=== PATIENT | female | born 1990 | race Caucasian/White ===

== ENCOUNTER 2020-05-12 19:33 | Emergency (ER) | payer OTHER, SELFPAY ==
--- NOTE | ~2020-05-12 | XR_ITS ---
EXAMINATION: XR knee RT 3V DATE: 05/12/2020 19:58 INDICATION: Right knee pain TECHNIQUE: Three views of the right knee were obtained. COMPARISON: None. FINDINGS: Alignment is normal. No fracture or osteochondral lesion. Joint spaces are normal with no e rosions. No joint effusion/synovitis. Soft tissues are unremarkable. IMPRESSION: 1. No acute osseous abnormality. Reviewed, dictated and finalized at location A. URSING AGENT
[2020-05-12 19:35] VITALS: BP 139/88; PULSE 98; RESP 18; TEMP 36.2; O2SAT 100
--- NOTE | 2020-05-12 21:06 | ED.GENADULT ---
HPI - General Adult General Chief complaint: Extremity Injury, Lower Stated complaint: right knee injury Time Seen by Provider: 05/12/20 20:48 Source: patient Mode of arrival: ambulatory Limitations: no limitations History of Present Illness HPI narrative: Patient is a 29-year-old female who presents with right knee pain that began today after jumping out of the bed of a truck and her knee twisted awkwardly is since had aching pain worse with weightbearing and activity patient denies other injuries or complaints or similar occurrence in the past presents in no distress has not had anything for her symptoms Related Data Home Medications Medication Instructions Recorded Confirmed L norgest/e.estradiol-e.estrad 05/12/20 [Amethia] Allergies Allergy/AdvReac Type Severity Reaction Status Date / Time clindamycin Allergy Rash Verified 05/12/20 19:39 sulfamethoxazole Allergy Rash Verified 05/12/20 19:39 [From Bactrim] trimethoprim [From Bactrim] Allergy Rash Verified 05/12/20 19:39 Review of Systems Review of Systems: All systems reviewed & are unremarkable except as noted in HPI and below PMFSH Surgical History Surgical History (Updated 05/12/20 @ 21:07 by Fredy Mares PA-C) History of orthopedic surgery Family History Family History (Updated 10/10/15 @ 23:21 by DOCTOR UNKNOWN) Father Hypertension Cerebrovascular accident Family history of diabetes mellitus in first degree relative Mother Patient's mother is in good health Sibling Patient's sister is in good health Patient's brother is in good health Social History Social History (Updated 05/12/20 @ 21:07 by Fredy Mares PA-C) Smoking status: Never smoker Alcohol intake: current Gender identity (if verbalized by the patient): Female Sexual Orientation (if Verbalized by the Patient): Straight or Heterosexual Exam Narrative: Exam Narrative: GENERAL: Well-appearing, well-nourished, and in no acute distress. HEAD: Normocephalic, atraumatic. EYES: PERRLA and EOMI. EXTREMITIES: Normal range of motion. No edema. Tenderness of the lateral medial aspect of the right knee no deformities noted SKIN: Warm, dry, no rash. NEURO: No focal deficits. Alert and oriented x3. Neurovascularly intact PSYCH: Normal mood and affect. Course Course Emergency Course: Patient evaluated in the emergency department no distress felt appropriate for outpatient reevaluation Vital Signs Vital signs: Vital Signs Temperature 97.1 F L 05/12/20 19:35 Pulse Rate 98 05/12/20 19:35 Respiratory Rate 18 05/12/20 19:35 Blood Pressure 139/88 05/12/20 19:35 Pulse Oximetry 100 05/12/20 19:35 Temperature 97.1 F L 05/12/20 19:35 Pulse Rate 98 05/12/20 19:35 Respiratory Rate 18 05/12/20 19:35 Blood Pressure 139/88 05/12/20 19:35 Pulse Oximetry 100 05/12/20 19:35 Medical Decision Making MDM Narrative Medical decision making narrative: Patients injury or pain is consistent with musculoskeletal etiology. No signs of neurological or vascular compromise on exam. Compartments and tisues are soft without signs of compartment syndrome. Pain is felt appropriate for further evaluation on an outpatient basis. Vital Signs Vital Signs: Vital Signs Temperature 97.1 F L 05/12/20 19:35 Pulse Rate 98 05/12/20 19:35 Respiratory Rate 18 05/12/20 19:35 Blood Pressure 139/88 05/12/20 19:35 Pulse Oximetry 100 05/12/20 19:35 Temperature 97.1 F L 05/12/20 19:35 Pulse Rate 98 05/12/20 19:35 Respiratory Rate 18 05/12/20 19:35 Blood Pressure 139/88 05/12/20 19:35 Pulse Oximetry 100 05/12/20 19:35 Imaging Data Radiologist's impression: ITS Impressions Knee X-Ray 05/12/20 20:01 IMPRESSION: 1. No acute osseous abnormality. Discharge Plan Discharge Clinical Impression: Acute pain of right knee Patient Disposition: Home, Self-Care Condition: Stable Instructions: Antibiot
== END 2020-05-12 21:20 | disposition home or self-care (01) ==
PROVIDERS: Emergency Provider Emergency Medicine; PCP Family Medicine
DX: M25.561 Pain in right knee (principal)
CPT/HCPCS: 73562; 99283

== ENCOUNTER → 2020-05-23 07:48 | Outpatient (CLI) | payer OTHER, SELFPAY ==
--- NOTE | ~2020-05-23 | MR_ITS ---
EXAMINATION: MR knee RT wo con DATE: 05/23/2020 08:28 INDICATION: Generalized right knee pain. TECHNIQUE: Magnetic resonance imaging (MRI) of the right knee was performed without intravenous contr ast. Sequences included axial PD-weighted FS FSE, coronal PD-weighted FSE and PD-weighted FS FSE, sag ittal PD-weighted FSE, and sagittal T2-weighted FS FSE. COMPARISON: Right knee radiographs 05/12/2020 FINDINGS: Medial compartment: Medial meniscus is normal. There is cartilage surface irregularity of tibial condyle involving the ce ntral articular surface. The femoral cartilage is normal. Lateral compartment: Lateral meniscus is normal. Lateral compartment cartilage is normal. Patellofemoral compartment: The patellar cartilage is normal. Trochlear cartilage is normal. Ligaments and tendons: Anterior cruciate ligament is enlarged and indistinct with increased signal intensity. There is fluid at the proximal attachment. Posterior cruciate ligament is normal. Medial collateral ligament and la teral collateral ligament complex are normal. Fluid: There is a small knee joint effusion. Osseous/other: There is bone marrow edema-like marrow signal intensity in the posterior aspect of medial and lateral tibial condyles, consistent with contusions. IMPRESSION: 1. Anterior cruciate ligament tear, at least partial. 2. Mild medial compartment chondrosis. 3. Small knee joint effusion. Reviewed, dictated and finalized at location A. ASSEMBLER
== END ==
PROVIDERS: PCP Family Medicine; Visit Provider Orthopaedic Surgery
DX: S83.511A Sprain of anterior cruciate ligament of right knee, initial encounter (principal); X58.XXXA Exposure to other specified factors, initial encounter; M25.461 Effusion, right knee
CPT/HCPCS: 73721

== ENCOUNTER → 2020-06-23 03:01 | Outpatient (CLI) | payer OTHER, SELFPAY ==
[2020-06-23 19:42] LABS: SARS-CoV-2 RNA PCR Negative
== END ==
PROVIDERS: PCP Family Medicine; Visit Provider Orthopaedic Surgery
DX: Z01.812 Encounter for preprocedural laboratory examination (principal); Z20.822 Contact with and (suspected) exposure to COVID-19
CPT/HCPCS: C9803; U0003; U0005

== ENCOUNTER 2020-06-26 00:29 | Day surgery (SDC) | payer OTHER, SELFPAY ==
[2020-06-11 09:56] VITALS: BMI 41.0
[2020-06-26] VITALS (15 sets, daily range): BP systolic 120–161; BP diastolic 68–100; PULSE 78–126; RESP 10–18; TEMP 35.9–36.5; O2SAT 92–99
--- NOTE | 2020-06-26 07:18 | WPDHPUPDATE1 ---
History and Physical Update Update Date/Time: 06/26/20 07:18 History and Physical has been reviewed, including an updated exam of the patient. There are NO changes in the patient's condition. Covid test negative. Risks, benefits, and alternatives have been discussed and questions answered. Patient agrees to proceed with procedure.
[2020-06-26] MEDS: ACETAMINOPHEN 500 MG TABLET 1000 MG PO (08:26)
[2020-06-26] MEDS: LACTATED RINGERS 1,000 ML 30 ML IV CONT ×4 (08:30→15:24)
[2020-06-26] MEDS: KETOROLAC 15 MG/ML VIAL (*BKC) IV PUSH (08:35)
--- NOTE | 2020-06-26 08:42 | SUR.PREOP ---
PT HAS CRUTCHES AT HOME AND STATES SHE KNOWS HOW TO USE THEM
--- NOTE | 2020-06-26 08:58 | WPDANESEPPF ---
Anes - Initial Pre Proc Eval Procedure: Operation Date: 06/26/20 09:30 Proposed Procedures p Right Knee Anterior Cruciate Ligament Reconstruction - Giancarlo Schultz MD Date/Time: 06/26/20 08:58 Surgeon: Giancarlo Schultz MD Pre Op Diagnosis: Right ACL Tear Patient Data Age: 29 Gender: F Height: 5 ft 3 in Weight: 107.8 kg Last Vital Signs Temp 35.9 C L 06/26/20 07:52 Pulse 98 06/26/20 07:52 Resp 18 06/26/20 07:52 BP 121/80 06/26/20 07:52 Pulse Ox 97 06/26/20 07:52 Allergies Allergy/AdvReac Type Severity Reaction Status Date / Time clindamycin Allergy Rash Verified 06/26/20 08:42 sulfamethoxazole Allergy Rash Verified 06/26/20 08:42 [From Bactrim] trimethoprim [From Bactrim] Allergy Rash Verified 06/26/20 08:42 Home Medications Medication Instructions Recorded Confirmed Type L norgest/e.estradiol-e.estrad 1 tablet PO DAILY 05/12/20 06/26/20 History [Amethia] hydrocodone 5 mg-acetaminophen 325 1 tablet PO Q6H PRN #30 tablet 05/14/20 06/26/20 Rx mg tablet ibuprofen 600 mg tablet 600 mg PO Q6H PRN #30 tablet 05/14/20 06/26/20 Rx multivitamin 1 tablet PO DAILY 05/14/20 06/26/20 History Patient hx anesthesia problems: none Family hx anesthesia problems: none PMFSH Past Medical History Medical History (Updated 06/26/20 @ 08:58 by Tung Perez MD) ACL (anterior cruciate ligament) rupture Morbid obesity Surgical History Surgical History History of ankle surgery Reconstruction/hardware removal History of anterior cruciate ligament surgery 2007, Left History of orthopedic surgery Family History Family History Father Hypertension Cerebrovascular accident Family history of diabetes mellitus in first degree relative Mother Patient's mother is in good health Sibling Patient's sister is in good health Patient's brother is in good health Other Heart disease High cholesterol Social History Social History Smoking packs per day: 0.5 Smoking cigarettes per day: 10.0 Years smoked: 8 Smoking pack-years: 4.00 Alcohol intake: current Living arrangements: with family Gender identity (if verbalized by the patient): Female Spiritual care concerns: No Anes - Eval Final PreProcedure Day of Procedure 06/26/20 08:58 Patient weight: morbidly obese Heart: regular rate and rhythm Lungs: clear to auscultation Airway: Mallampati scale class II Neurological: alert and oriented Last oral intake: >/= 8 hours ASA classification: III Emergent: no Anesthetic plan: proceed Anesthesia type and monitoring: general LMA and standard monitoring Informed Consent: The patient's anesthetic plan and its attendant risks and benefits were discussed with the patient/family/POA. Questions were solicited and answers provided to the satisfaction of the patient/family/POA.
[2020-06-26] MEDS: FAMOTIDINE 20 MG/2 ML VIAL IV PUSH (09:03)
[2020-06-26] MEDS: ONDANSETRON INJ 4 MG/2 ML VIAL IV PUSH ×2 (09:03→14:28)
[2020-06-26] MEDS: ceFAZolin 2 GM/D5W 50 ML 2 GM/50 ML BAG IVPB (09:59)
[2020-06-26] MEDS: BUPIVACAINE/EPINEPHRINE 0.5% 30 ML VIAL 20 ML INFILTRATE (10:27)
--- NOTE | 2020-06-26 10:48 | SUR.OPER ---
CONTACTS REMOVED IN PRE OP AND PLACED IN BELONGING BAG. ASKED IF ANYTHING REMOVABLE IN MOUTH AND PATIENT DENIED. [facility] PATIENT NAVIGATOR PRESENT AND HERD QUESTION ASK AND PATIENT STATING NO . PRIOR TO LMA PLACEMENT NOTED INVISALINE COVERS ON TOP AND BOTTOM TEETH/TIGHTLY IN PLACE. UPDATED AT 10:48 AND ASKED IF PATIENT WEARS INVISALINE AND REMOVES THEM. HE STATED YES AND SHE TAKES THEM OUT TO EAT. INFORMED OF THE ABOVE AND AWARE THEY ARE IN PLACE. DR ABRAMS AWARE AND DR IBRAHIM AWARE. TO LEAVE IN.
--- NOTE | 2020-06-26 11:02 | SUR.OPER ---
RIGHT KNEE JRF SPEED GRAFT [id number] LOT [id number]/ [id number] STERILE FIELD [address] PLACED IN 1000ML STERILE NS ON STERILE FIELD [facility] [id number]--, LOT [id number], EXP [id number]
--- NOTE | 2020-06-26 11:39 | SUR.OPER ---
[place] [address]
--- NOTE | 2020-06-26 11:52 | SUR.OPER ---
acl graft inserted at 1140
[2020-06-26] MEDS: diphenhydrAMINE HCl INJ 50 MG/ML VIAL 25 MG IV PUSH ×3 (12:34→15:22)
--- NOTE | 2020-06-26 12:35 | P.OP_ITS ---
Procedure Note - Detailed Date of procedure: 06/26/20 Pre-op diagnosis: Right ACL Tear Post-op diagnosis: same Procedure performed: Right knee arthroscopic assisted ACL reconstruction Description of procedure: Indications: Patient is a 29-year-old woman who sustained a right knee injury about 6 weeks ago. MRI demonstrates anterior cruciate ligament tear. She has had a previous tear on the left side and underwent surgical repair. She desires operative treatment for the right side. What was done: Patient identified in the preoperative holding. Informed consent given. Operative extremity marked. Patient received intravenous antibiotics. Patient brought to the operating room where underwent general anesthetic by anesthesia team. Positioned supine on operating room table. Time-out performed confirming the patient, site of the surgery and the plan. Right leg placed into a thigh coronado and the foot of the table was dropped to 90?. Right knee prepped and draped usual sterile surgical fashion using a ChloraPrep skin solution. The left leg was padded secured out of the field with anti thrombotic compression wrap. Standard arthroscopic portals were made with 11 blade knife for the incision blunt penetration of the capsule and insertion of the camera and inflow through the lateral portal. Knee was inspected. There were minimal degenerative changes of the medial compartment and the patellofemoral compartment. Both lateral and medial menisci intact. PCL noted to be intact. There is a complete tear of the anterior cruciate ligament from the femoral side. Ligament was debrided with a shaver after making medial portal. Spinal needle used for positioning followed by 11 blade knife for the skin and blunt penetration of the capsule. Resection of the anterior fat pad was also performed. We then proceeded with the reconstruction. Tibial guide was placed and the tibia was drilled for the tibial socket with a 10 mm drill. The femoral side was then drilled. A guide pin was placed on lateral wall of the notch utilizing the old footprint as a guide. A 35 mm bony wall was confirmed. A flip cutter then used to drill a 10 mm socket 25 mm in depth on the lateral wall. The allograft was then prepared on the back table. This was then shuttled through the tibia into the femoral socket and secured with a button. With the knee in the correct position and a posterior force on the tibia the distal portion of the graft was secured to the tibia with the 9 mm interference screw. The knee was cycled through range of motion prior to securing. Graft was inspected and noted to be in good position, good stability of the knee. 1 L of irrigant run through the knee and suctioned out. Knee inspected again and no other problems noted. Distally the graft was secondarily secured with a SwiveLock anchor in the tibia. The wound was closed with a 2 Vicryl interrupted suture and for nylon running suture. Arthroscopic portals closed with 4 nylon interrupted suture. Sterile dressing applied. The patient was then woken from anesthesia, extubated and taken to the recovery room in stable condition. All sponge, needle, instrument counts were correct at the end of the case. Implants: Arthrex allograft tendon with 9 mm interference screw Anesthesia: GLMA Surgeon: Giancarlo Schultz MD Parachutist/Combatant Diver Qualified: 1st assistant infant teacher Estimated blood loss (mL): 20 Tourniquet time (min): 0 Drains: No Packing: No Pathology: none sent Complications: None Condition: stable Disposition: PACU
[2020-06-26] MEDS: fentaNYL CITRATE INJ (*CRX) 100 MCG/2 ML VIAL 25 MCG IV PUSH ×8 (12:36→13:41)
[2020-06-26] MEDS: SCOPOLAMINE 1.5 MG PATCH TRANSDERM (13:47)
[2020-06-26] MEDS: DEXAMETHASONE SOD PHOS INJ 4 MG/ML VIAL 12 MG IV PUSH (15:19)
--- NOTE | 2020-06-26 16:21 | SUR.OPER ---
LATE ENTRY RIGHT KNEE IMPLANTS ARTHREX JRF SPEEDGRAFT SEE PREVIOUS NOTE FAST THREAS BIOCOMPOSITE INTERFERENCE SCREW [id number] LOT [id number] 2020 09 30 X1 DOUBLE LOADED TIGHTROPE RT 9MM LOT [id number] 2021 07 31 X1 SECONDARY FIXATION BIOCOMPOSITE SWIVELOCK LOT [id number] 12 31 X1
== END 2020-06-26 17:05 | disposition home or self-care (01) ==
PROVIDERS: PCP Family Medicine; Visit Provider Orthopaedic Surgery
PROC: (CPT 29888; principal; 2020-06-26 09:30)
DX: S83.511A Sprain of anterior cruciate ligament of right knee, initial encounter (principal); X50.0XXA Overexertion from strenuous movement or load, initial encounter; E66.01 Morbid (severe) obesity due to excess calories; Z68.41 Body mass index [BMI] 40.0-44.9, adult; Z87.891 Personal history of nicotine dependence
CPT/HCPCS: 29888; A9270; C9803; J0690; J1100; J1170; J1200; J1885; J2250; J2370; J2405; J2704; J3010; J7120; L1830; U0003; U0005

== ENCOUNTER 2022-05-04 00:38 | Day surgery (SDC) | payer OTHER, SELFPAY ==
[2022-04-21 08:55] VITALS: BMI 41.5
--- NOTE | 2022-05-03 15:47 | WPDANESEPPF ---
Anes - Initial Pre Proc Eval Procedure: Operation Date: 05/04/22 08:30 Proposed Procedures p Esophagogastroduodenoscopy - Heriberto Mcdaniel MD Date/Time: 05/03/22 15:47 Surgeon: Heriberto Mcdaniel MD Pre Op Diagnosis: nausea Patient Data Age: 31 Gender: F Height: 1.6 m Weight: 106.5 kg Allergies Allergy/AdvReac Type Severity Reaction Status Date / Time clindamycin Allergy Intermediate Rash Verified 05/04/22 07:16 sulfamethoxazole Allergy Intermediate Rash Verified 05/04/22 07:16 [From Bactrim] trimethoprim [From Bactrim] Allergy Intermediate Rash Verified 05/04/22 07:16 Home Medications Medication Instructions Recorded Confirmed Type L norgest/E estradiol-E estrad 1 tablet PO DAILY 05/12/20 04/21/22 History 0.15 mg-30 mcg (84)/10 mcg(7) tabs,3mos (Amethia) multivitamin (Daily Multi-Vitamin 1 tablet PO DAILY 05/14/20 04/21/22 History tablet) omeprazole 40 mg capsule,delayed 40 mg PO DAILY #30 caps 03/23/22 04/21/22 Rx release ondansetron 8 mg disintegrating 8 mg PO Q8H PRN nausea and 03/23/22 04/21/22 Rx tablet vomiting #30 tabs Patient hx anesthesia problems: none Family hx anesthesia problems: none Results Review: All pre-operative results and documents have been reviewed as part of the pre-operative evaluation. [facility] Past Medical History Medical History (Updated 03/23/22 @ 10:51 by Luciana Marte APRN) ACL (anterior cruciate ligament) rupture Right knee GERD (gastroesophageal reflux disease) Morbid obesity Nausea Obesity Surgical History Surgical History History of ankle surgery Reconstruction/hardware removal History of anterior cruciate ligament surgery 2007, Left History of orthopedic surgery Family History Family History Father Hypertension Cerebrovascular accident Family history of diabetes mellitus in first degree relative Mother Patient's mother is in good health Sibling Patient's sister is in good health Patient's brother is in good health Other Heart disease High cholesterol Social History Social History Smoking packs per day: 0.5 Smoking cigarettes per day: 10.0 Years smoked: 8 Smoking pack-years: 4.00 Smoking status: Former smoker Tobacco type: cigarettes Alcohol intake: current Alcohol use details: 5-10 per week Substance use: never Substance use type: does not use Living arrangements: with family Occupation/Education: occupation Gender identity (if verbalized by the patient): Female Sexual Orientation (if Verbalized by the Patient): Straight or Heterosexual Spiritual care concerns: No Anes - Eval Final PreProcedure Day of Procedure 05/03/22 15:47 Patient weight: morbidly obese Heart: regular rate and rhythm Lungs: clear to auscultation Airway: Mallampati scale class II Neurological: alert and oriented Last oral intake: >/= 8 hours ASA classification: III Emergent: no Anesthetic plan: proceed Anesthesia type and monitoring: general GIVS and standard monitoring Results Review: All pre-operative results and documents have been reviewed as part of the pre-operative evaluation. Informed Consent: The patient's anesthetic plan and its attendant risks and benefits were discussed with the patient/family/POA. Questions were solicited and answers provided to the satisfaction of the patient/family/POA.
[2022-05-04 07:17] VITALS: BP 127/71; PULSE 90; RESP 18; TEMP 36.2; O2SAT 99
[2022-05-04] MEDS: LACTATED RINGERS 1,000 ML 150 ML IV CONT (08:00)
--- NOTE | 2022-05-04 08:22 | PM.HPGS ---
History of Present Illness History of Present Illness Consent: Risks, benefits, and alternatives have been discussed and questions answered. Patient agrees to proceed with procedure. Chief complaint: nausea Narrative: Aylin Armenta is a 31 year old female with intermittent nausea for several months, no pain, no smoking. Never had egd Review of Systems Constitutional: Constitutional: Denies headache(s) and Denies weakness Eyes: Eyes: Denies blurry vision ENT: Reports Normal hearing present, Denies headache(s) and Denies neck pain Cardiovascular: Cardiovascular: Denies chest pain and Denies dyspnea Respiratory: Respiratory: Denies dyspnea Gastrointestinal: Gastrointestinal: Reports no additional gastrointestinal complaints Genitourinary: Genitourinary: Denies dysuria Musculoskeletal: Musculoskeletal: Denies neck pain Integumentary/Breasts: Skin/Breast: Denies dry skin Neurologic: Reports Normal hearing present, Denies headache(s) and Denies weakness Psychiatric: Psychiatric: Denies anxiety Endocrine: Endocrine: Denies change in body appearance Hematologic/Lymphatic: Hematologic/Lymphatic: Denies easy bleeding Allergic/Immunologic: Allergic/Immunologic: Denies urticaria PMFSH Past Medical History Medical History (Updated 03/23/22 @ 10:51 by Luciana Marte APRN) ACL (anterior cruciate ligament) rupture Right knee GERD (gastroesophageal reflux disease) Morbid obesity Nausea Obesity Surgical History Surgical History History of ankle surgery Reconstruction/hardware removal History of anterior cruciate ligament surgery 2007, Left History of orthopedic surgery Family History Family History Father Hypertension Cerebrovascular accident Family history of diabetes mellitus in first degree relative Mother Patient's mother is in good health Sibling Patient's sister is in good health Patient's brother is in good health Other Heart disease High cholesterol Social History Social History Smoking packs per day: 0.5 Smoking cigarettes per day: 10.0 Years smoked: 8 Smoking pack-years: 4.00 Smoking status: Former smoker Tobacco type: cigarettes Alcohol intake: current Alcohol use details: 5-10 per week Substance use: never Substance use type: does not use Living arrangements: with family Occupation/Education: occupation Gender identity (if verbalized by the patient): Female Sexual Orientation (if Verbalized by the Patient): Straight or Heterosexual Spiritual care concerns: No Meds Home Medications and Allergies Home Medications Medication Instructions Recorded Confirmed Type L norgest/E estradiol-E estrad 1 tablet PO DAILY 05/12/20 04/21/22 History 0.15 mg-30 mcg (84)/10 mcg(7) tabs,3mos (Amethia) multivitamin (Daily Multi-Vitamin 1 tablet PO DAILY 05/14/20 04/21/22 History tablet) omeprazole 40 mg capsule,delayed 40 mg PO DAILY #30 caps 03/23/22 04/21/22 Rx release ondansetron 8 mg disintegrating 8 mg PO Q8H PRN nausea and 03/23/22 04/21/22 Rx tablet vomiting #30 tabs Allergies Allergy/AdvReac Type Severity Reaction Status Date / Time clindamycin Allergy Intermediate Rash Verified 05/04/22 07:16 sulfamethoxazole Allergy Intermediate Rash Verified 05/04/22 07:16 [From Bactrim] trimethoprim [From Bactrim] Allergy Intermediate Rash Verified 05/04/22 07:16 Vital Signs Vital Signs - 24 hr 05/04/22 07:17 Temperature 97.2 F L Pulse Rate 90 Respiratory Rate 18 Blood Pressure 127/71 Pulse Oximetry 99 Oxygen Delivery Room Air Exam Const: General: comfortable and no acute distress HENMT: Face/Nose/Sinus: Normal nares present Eyes: General: appearance normal, both eyes and all related structures Neck: Neck: no JVD Resp: Auscultation:
[2022-05-04 08:32] VITALS: BP 114/69; PULSE 70; RESP 20; O2SAT 100
[2022-05-04 08:42] VITALS: BP 113/75; PULSE 80; RESP 21; O2SAT 100
[2022-05-04 08:52] VITALS: BP 106/78; PULSE 71; RESP 20; O2SAT 100
== END 2022-05-04 08:55 | disposition home or self-care (01) ==
PROVIDERS: PCP Family Medicine; Visit Provider Internal Medicine Gastroenterology
PROC: 0DJ08ZZ Inspection of Upper Intestinal Tract, Via Natural or Artificial Opening Endoscopic (ICD-10-PCS; CPT 43235; principal; 2022-05-04 08:30)
DX: K29.50 Unspecified chronic gastritis without bleeding (principal); K21.9 Gastro-esophageal reflux disease without esophagitis; E66.01 Morbid (severe) obesity due to excess calories; Z68.41 Body mass index [BMI] 40.0-44.9, adult; Z87.891 Personal history of nicotine dependence
CPT/HCPCS: 43239; 88305; J2704; J7120

== ENCOUNTER 2022-05-25 08:03 | Outpatient (CLI) | payer OTHER, SELFPAY ==
--- NOTE | ~2022-05-25 | NM_ITS ---
EXAM: NM gastric emptying study DATE: 05/25/2022 12:55 INDICATION: Nausea. TECHNIQUE: A gastric emptying study was performed using the methodology of Barbra ADHIKARI, et al. J Nucl Med 2007; 48:568-572. The patient was given a meal consisting of 2 scrambled eggs labeled with 0.953 mCi Tc-99m sulfur colloid, 2 slices of toast, two packages of jam, and approximately 120 mL of water . Simultaneous anterior and posterior 1-min images of the abdomen were obtained with the patient supi ne at multiple time points over a total period of 4 hours. The geometric mean of anterior and posteri or views was determined, and the percentage retention was calculated for each time point. COMPARISON: None. FINDINGS: Gastric retention of the radiotracer-labeled meal was 58%, 33%, and 3% at the 1-hour, 2-ho ur, and 4-hour time points, respectively. With this technique, apparent rapid gastric emptying is sug gested by <30% gastric retention at 1 hour. Delayed gastric emptying is defined by gastric retention of >90% at 1 hour, >60% retention at 2 hours, or >10% retention at 4 hours. IMPRESSION: 1. Normal gastric emptying. Reviewed, dictated and finalized at location A. IMPRESSION: 1. Normal gastric emptying.
== END 2022-05-25 08:04 | disposition home or self-care (01) ==
PROVIDERS: PCP Family Medicine; Visit Provider Internal Medicine Gastroenterology
DX: R11.0 Nausea (principal)
CPT/HCPCS: 78264; A9541